=== PATIENT | male | born 1950 | race Caucasian/White ===

== ENCOUNTER 2019-04-27 18:08 | Inpatient (IN) | payer MEDICARE, OTHER, SELFPAY ==
[2019-04-27] VITALS (7 sets, daily range): BP systolic 106–153; BP diastolic 73–84; PULSE 56–74; RESP 13–20; TEMP 36.2; O2SAT 93–98; BMI 29.3; BMI 29.2
--- NOTE | 2019-04-27 18:30 | DI.RAD.S_ITS ---
PROCEDURE: XR CHEST 1V INDICATIONS: chest pain TECHNIQUE: One view of the chest was acquired. COMPARISON: [facility], , CHEST 1 VIEW, 06/22/2016, 7:16. FINDINGS: Surgical changes and devices: None. Lungs and pleura: Lungs are clear. No pleural effusions or pneumothorax. Mediastinum: Mediastinal contours appear normal. Heart size is normal. Bones and chest wall: No suspicious bony lesions. Overlying soft tissues appear unremarkable. IMPRESSION: 1. No acute cardiopulmonary disease. The Dictated by: Rafi Garcia M.D. on 04/27/2019 at 19:29 Approved by: Raif Garcia M.D. on 04/27/2019 at 19:29
[2019-04-27 19:01] LABS: Add Manual Diff / Slide Review NO; Basophils Absolute Auto 0 /uL (0-100); Basophils Percent Auto 0.4 % (0-2); Eosinophils Absolute Auto 400 /uL (0-450); Eosinophils Percent Auto 4.8 % (2-4); Hematocrit 41.9 % (41-53); Hemoglobin 14.5 g/dL (13.5-17.5); Lymphocytes Absolute Auto 2100 /uL (1100-4500); Mean Corpuscular HGB Conc 34.5 % (30-36); Mean Corpuscular Hemoglobin 30.1 PG (26-34); Mean Corpuscular Volume 87.1 fL (80-100); Monocytes Absolute Auto 800 /uL (0-900); Monocytes Percent Auto 9.5 % (3-14); Neutrophils Absolute Auto 5000 /uL (1500-7000); Neutrophils Percent Auto 60.3 % (50-75); Platelet Count 205 X10^3/uL (150-400); Red Blood Cell Count 4.81 X10^6/uL (4.5-5.9); Red Cell Distribution Width 14.6 % (11.6-14.8); White Blood Cell Count 8.3 X10^3/uL (4.5-11.0)
[2019-04-27 19:05] LABS: HEMOLYSIS 28 (0-50)
[2019-04-27 19:06] LABS: Prothrombin Time 11.7 SECONDS (10.1-12.7)
[2019-04-27 19:09] LABS: PTT Partial Thromboplastin Tim 35 SECONDS (26.4-36.2)
[2019-04-27 19:10] LABS: Alanine Aminotransferase 20 IU/L (21-72); Albumin 4.4 g/dL (3.5-5.0); Albumin Globulin Ratio 1.3 (1.0-2.8); Alkaline Phosphatase 51 U/L (38-126); Aspartate Aminotransferase 28 IU/L (17-59); BUN Creatinine Ratio 24.5 (6-22); Bilirubin Total 0.5 mg/dL (0.2-1.3); Blood Urea Nitrogen 27 mg/dL (9-20); Calcium 9.9 mg/dL (8.4-10.2); Carbon Dioxide 28 mmol/L (22-32); Chloride 101 mmol/L (98-107); Creatine Kinase 112 U/L (55-170); Estimated Glomerular Filt Rate > 60.0 mL/min (>60); Globulin 3.4 g/dL (1.7-4.1); Glucose 89 mg/dL (80-110); Lipase 106 U/L (23-300); Potassium 4.1 mmol/L (3.4-5.1); Sodium 137 mmol/L (137-145); Total Protein 7.8 g/dL (6.3-8.2)
--- NOTE | 2019-04-27 19:19 | ED.CHESTPAIN ---
HPI - Chest Pain General Chief Complaint: Chest Pain Stated Complaint: sob/chest tightness today Time Seen by Provider: 04/27/19 19:40 Source: patient Mode of arrival: ambulatory Limitations: no limitations History of Present Illness HPI narrative: Patient is a 68-year-old male who presents with past medical history of CVA today presents with increasing chest discomfort and shortness of breath with exertion is over the last couple of days. He says it started with a hand crank he was cranking up something on the tail end of a truck. He got extremely short of breath and stopped symptoms resolved with rest. Today his symptoms got worse with left exertion. Walking up a small incline which typically does not give him any shortness of breath gave him some shortness of breath today. Sitting at rest he denies any shortness of breath or chest discomfort. 6 weeks ago he returned back from a trip from [place]. He maybe had some left leg cramping a few days ago but no swelling no pain. He has not had any fever chills productive cough heart palpitations nausea or diaphoresis. He has also been on and off Plavix since his stroke in 2014. Doctors take him off and put him back on depending on which 1 he saw. He is currently not taking Plavix but does take 81 mg aspirin daily. MD complaint: chest pain Onset (ago): day(s) (3) Duration: intermittent Onset: during exertion Severity: mild Quality: tightness Pain radiation: none Relieving factors: rest Exacerbating factors: exertion Context: recent travel (6 weeks ago to [place] and recently to [place]) Associated symptoms: dyspnea Treatments prior to arrival chest pain: aspirin (81 mg) Related Data Home Medications Medication Instructions Recorded Confirmed atorvastatin [Lipitor] 40 mg PO HS 04/27/19 04/27/19 Previous Rx's Medication Instructions Recorded aspirin 81 mg PO QDAY #30 tab 06/25/16 clopidogrel [Plavix] 75 mg PO QDAY #30 tab 06/25/16 Allergies Allergy/AdvReac Type Severity Reaction Status Date / Time No Known Drug Allergies Allergy Verified 04/27/19 19:42 Review of Systems Review of Systems GENERAL: Denies chills, fatigue, malaise, fever, sweats, travel HEENT: Denies sinus pain, ear pain, sore throat, difficulty swallowing, neck pain RESPIRATORY: See HPI CARDIOVASCULAR: See HPI GASTROINTESTINAL: Denies nausea, vomiting, abdominal pain, diarrhea, constipation, melena. : Denies dysuria, frequency, incontinence, hematuria, urinary retention, flank pain. MUSCULOSKELETAL: Denies weakness, joint pain, or bony pain SKIN: No rash, no erythema, no pruritus NEUROLOGIC: Denies weakness, dizziness, headache, numbness, change in speech, confusion PSYCHIATRIC: No concerning psychosocial issues. 12 point review of systems is negative except for those stated above and HPI COUNTS INCLUDE 234 BEDS AT THE [facility] Medical History (Updated 04/27/19 @ 23:16 by IRAIDA Sanon) CVA (cerebral vascular accident) (Acute) Central sleep apnea (Acute) Coronary artery disease (Acute) Hyperlipidemia (Acute) Hypertension (Acute) Myocardial infarction (Acute) CARLA (obstructive sleep apnea) (Acute) Social History marital status: household members: spouse Smoking Status: Never smoker alcohol intake: never substance use type: does not use Social History marital status: household members: spouse Smoking Status: Never smoker alcohol intake: never substance use type: does not use Exam Initial Vital Signs Initial Vital Signs: Vital Signs Pulse Rate 74 04/27/19 18:28 Respiratory Rate 16 04/27/19 18:28 Blood Pressure 153/84 H 04/27/19 18:28 Pulse Oximetry 96 04/27/19 18:28 GENERAL: [Well-appearing, well-nourished] and in [no acute] distress. HEENT: Head atraumatic,EOMI, pupils reactive, face symmetric, [moist] mucous membranes [EARS:] [Tympanic membranes visualized, no erythema or bulging, no hemotympanum] [PHARYNX:] [No erythema, no tonsillar exudate, no cervical lymphadenopathy] CARDIOVASCULAR: Regular rate and rhythm without murmurs, rubs or gallops. RESPIRATORY: Breath sounds equal bilaterally, no wheezes rales or rhonchi. ABDOMEN: Soft, nontender. Normoactive bowel sounds all 4 quadrants. No guarding or rebound.s EXTREMITIES: Normal range of motion, no clubbing or edema. Neurovascularly intact. No calf tenderness swelling pain over erythema NEUROLOGICAL: Alert and oriented x4.Normal gait and speech. Cranial nerves II through XII grossly intact. SKIN: Warm, dry, no laceration, no petechiae, no rashes or lesions. Course Orders Ordered: ED Orders 04/27/19 18:30 XR chest 1V Stat EKG-12 Lead Stat 04/27/19 18:50 Complete Blood Count AUTO DIFF Stat Comprehensive Metabolic Panel Stat Lipase Stat Partial Thromboplastin Time Stat Prothrombin Time INR Stat Troponin & CK Cardiac Panel Stat 04/27/19 19:40 CT angio chest PE protocol Stat EKG-12 Lead Stat 04/27/19 20:57 Troponin I Stat 04/27/19 22:11 Education, smoking cessation ONGOING Education, smoking cessation ONGOING 04/27/19 22:14 Consult to Dietitian, Adult Routine 04/27/19 22:15 Consult to Discharge Planning Routine 04/27/19 22:17 EC echo doppler complete Urgent 04/27/19 22:18 NM gunner perf SPECT R&S pharm Urgent 04/27/19 22:33 Consult to Respiratory Therapy Evaluate & Treat CARLA CPAP Asses/Protocol RT PROTOCOL 04/27/19 23:59 Troponin I Urgent 04/28/19 Basic Metabolic Panel Routine Complete Blood Count AUTO DIFF Routine Lipid Panel Routine Aspirin (Aspirin Ec) 81 mg PO DAILY [facility] Last Admin: 04/27/19 22:34 Dose: Not Given Atorvastatin Calcium (Lipitor) 40 mg PO BEDTIME [facility] Last Admin: 04/27/19 23:54 Dose: Not Given Enoxaparin Sodium (Lovenox) 40 mg SUBCUT DAILY [facility] Sodium Chloride (Normal Saline 0.9%) 1,000 mls @ 75 mls/hr IV CONT [facility] Last Admin: 04/27/19 22:59 Dose: 75 mls/hr Morphine Sulfate (Morphine) 2 mg IV Q4HR PRN PRN Reason: Pain, Moderate (4-6) Morphine Sulfate (Morphine) 2 mg IV Q5MIN PRN PRN Reason: Chest Pain Naloxone HCl (Narcan) 0.2 mg IV Q2MIN PRN PRN Reason: Opiate Reversal Naloxone HCl (Narcan) 0.2 mg IV Q2MIN PRN PRN Reason: Opiate Reversal Nitroglycerin (Nitrostat) 0.4 mg SL [id number] PRN PRN Reason: Chest Pain Ondansetron HCl (Zofran) 4 mg IV Q8HR PRN PRN Reason: Nausea And Vomiting Discontinued Medications Aspirin (Aspirin Chew) 243 mg PO NOW ONE Stop: 04/27/19 19:40 Last Admin: 04/27/19 19:42 Dose: 243 mg Vital Signs - 8 hr 04/27/19 18:28 04/27/19 19:00 04/27/19 20:28 Temperature Pulse Rate 74 64 59 L Respiratory Rate 16 13 15 Blood Pressure 153/84 H Blood Pressure [Right Arm] 146/81 H 121/73 Pulse Oximetry 96 98 04/27/19 21:00 04/27/19 21:30 04/27/19 22:28 Temperature Pulse Rate 57 L 61 Respiratory Rate 13 18 Blood Pressure Blood Pressure [Right Arm] 106/75 134/75 Pulse Oximetry 96 93 04/27/19 23:06 Temperature 97.1 F L Pulse Rate 56 L Respiratory Rate 20 Blood Pressure 126/74 Blood Pressure [Right Arm] Pulse Oximetry 96 MDM - Chest Pain Lab Data Attestation: I reviewed the patient's lab results. Result diagrams: 04/27/19 18:50 04/27/19 18:50 Lab Results 04/27/19 04/27/19 04/27/19 Range/Units 18:50 18:50 18:50 WBC 8.3 (4.5-11.0) X10^3/uL RBC 4.81 (4.5-5.9) X10^6/uL Hgb 14.5 (13.5-17.5) g/dL Hct 41.9 (41-53) % MCV 87.1 (80-100) fL MCH 30.1 (26-34) PG MCHC 34.5 (30-36) % RDW 14.6 (11.6-14.8) % Plt Count 205 (150-400) X10^3/uL Neut % (Auto) 60.3 (50-75) % Lymph % (Auto) 25.0 (25-40) % Dickinson % (Auto) 9.5 (3-14) % Eos % (Auto) 4.8 H (2-4) % Baso % (Auto) 0.4 (0-2) % Neut # (Auto) 5000 (2501-0103) /uL Lymph # (Auto) 2100 (0135-1483) /uL Dickinson # (Auto) 800 (0-900) /uL Eos # (Auto) 400 (0-450) /uL Baso # (Auto) 0 (0-100) /uL PT 11.7 (10.1-12.7) SECONDS INR 1.0 (0.9-1.3) APTT 35 (26.4-36.2) SECONDS Sodium 137 (137-145) mmol/L Potassium 4.1 (3.4-5.1) mmol/L Chloride 101 (98-107) mmol/L Carbon Dioxide 28 (22-32) mmol/L BUN 27 H (9-20) mg/dL Creatinine 1.10 (0.66-1.25) mg/dL Estimated GFR > 60.0 (>60) mL/min BUN/Creatinine Ratio 24.5 H (6-22) Glucose 89 (80-110) mg/dL Calcium 9.9 (8.4-10.2) mg/dL Total Bilirubin 0.5 (0.2-1.3) mg/dL AST 28 (17-59) IU/L ALT 20 L (21-72) IU/L Alkaline Phosphatase 51 (38-126) U/L Total Creatine Kinase 112 (55-170) U/L CK-MB (CK-2) 2.11 (<2.37) ng/mL CK-MB (CK-2) Rel Index 1.9 (1.5-5.0) % Troponin I 0.035 H (0.01-0.034) ng/mL Total Protein 7.8 (6.3-8.2) g/dL Albumin 4.4 (3.5-5.0) g/dL Globulin 3.4 (1.7-4.1) g/dL Albumin/Globulin Ratio 1.3 (1.0-2.8) Lipase 106 (23-300) U/L 04/27/19 04/27/19 Range/Units 20:57 23:59 WBC (4.5-11.0) X10^3/uL RBC (4.5-5.9) X10^6/uL Hgb (13.5-17.5) g/dL Hct (41-53) % MCV (80-100) fL MCH (26-34) PG MCHC (30-36) % RDW (11.6-14.8) % Plt Count (150-400) X10^3/uL Neut % (Auto) (50-75) % Lymph % (Auto) (25-40) % Dickinson % (Auto) (3-14) % Eos % (Auto) (2-4) % Baso % (Auto) (0-2) % Neut # (Auto) (0205-4124) /uL Lymph # (Auto) (3821-7239) /uL Dickinson # (Auto) (0-900) /uL Eos # (Auto) (0-450) /uL Baso # (Auto) (0-100) /uL PT (10.1-12.7) SECONDS INR (0.9-1.3) APTT (26.4-36.2) SECONDS Sodium (137-145) mmol/L Potassium (3.4-5.1) mmol/L Chloride (98-107) mmol/L Carbon Dioxide (22-32) mmol/L BUN (9-20) mg/dL Creatinine (0.66-1.25) mg/dL Estimated GFR (>60) mL/min BUN/Creatinine Ratio (6-22) Glucose (80-110) mg/dL Calcium (8.4-10.2) mg/dL Total Bilirubin (0.2-1.3) mg/dL AST (17-59) IU/L ALT (21-72) IU/L Alkaline Phosphatase (38-126) U/L Total Creatine Kinase (55-170) U/L CK-MB (CK-2) (<2.37) ng/mL CK-MB (CK-2) Rel Index (1.5-5.0) % Troponin I 0.060 H 0.059 H (0.01-0.034) ng/mL Total Protein (6.3-8.2) g/dL Albumin (3.5-5.0) g/dL Globulin (1.7-4.1) g/dL Albumin/Globulin Ratio (1.0-2.8) Lipase (23-300) U/L Imaging Data Chest x-ray: Radiologist's impression: PROCEDURE: XR CHEST 1V INDICATIONS: chest pain TECHNIQUE: One view of the chest was acquired. COMPARISON: [facility], , CHEST 1 VIEW, 06/22/2016, 7:16. FINDINGS: Surgical changes and devices: None. Lungs and pleura: Lungs are clear. No pleural effusions or pneumothorax. Mediastinum: Mediastinal contours appear normal. Heart size is normal. Bones and chest wall: No suspicious bony lesions. Overlying soft tissues appear unremarkable. IMPRESSION: 1. No acute cardiopulmonary disease. The Dictated by: Rafi Garcia M.D. on 04/27/2019 at 19:29 CT scan - chest: Radiologist's impression: PROCEDURE: CT ANGIO CHEST PE PROTOCOL INDICATIONS: short of breath TECHNIQUE: After the administration of intravenous contrast, 2 mm thick sections acquired from the pulmonary apices to the posterior costophrenic angles. 3-dimensional maximum intensity projection (MIP) coronal and sagittal reformats were then acquired through the thorax. For radiation dose reduction, the following was used: automated exposure control, adjustment of mA and/or kV according to patient size. COMPARISON: None. FINDINGS: Image quality: Excellent. Pulmonary arteries: Pulmonary arteries are normal in size, and demonstrate no intraluminal filling defects to suggest central pulmonary embolism. Lungs and pleura: There is mild dependent atelectasis. No pleural effusions or pneumothorax. Central and peripheral airways are patent. Mediastinum: Heart size is normal, without pericardial effusion. No mediastinal or hilar adenopathy. There is aneurysmal dilatation of the ascending thoracic aorta which measures up to 4.3 cm. The aortic arch measures up to approximately 3.1 cm at the vertex. The proximal descending thoracic aorta measures up to 3.1 cm. At the level of the diaphragmatic hiatus, the aorta measures up to 2.7 cm. Esophagus is normal in caliber, with a small hiatal hernia. Bones and chest wall: No suspicious bony lesions. Ribs and thoracic spine appear intact throughout. Thyroid gland demonstrates no discrete nodules. No axillary or supraclavicular adenopathy. Abdomen: Visualized upper abdominal solid organs appear normal in the early arterial phase of enhancement. IMPRESSION: 1. No evidence of pulmonary embolism. 2. Aneurysmal dilatation of the thoracic aorta as described. Dictated by: Rafi Garcai M.D. on 04/27/2019 at 20:30 ECG Data Attestation: I personally reviewed and interpreted this ECG as follows: Prior ECG tracings: available for review Interpretation: EKG 1.: Normal sinus rhythm rate 71 p.r. interval [address] elevations no T-wave inversions or ST depressions similar to previous EKG in 2016. EKG 2. Normal sinus rhythm rate 63 unchanged from prior. MDM Narrative Medical decision making narrative: The patient is overall been chest pain free in the ED. He does have a slightly rising troponin but is still negative. His symptoms certainly consistent for cardiac disease. CT for PE was done based on patient's recent travel to [place] and was negative for PE but does have a thoracic aneurysm. Aneurysm shows no sign of dissection or rupture. At this time unlikely to be causing his symptoms is and can be managed in followed as an outpatient. Patient is certainly at risk for coronary artery disease and cardiovascular disease. Hospitalist Charles Ying has accepted patient Discharge Plan Departure Patient Disposition: Admitted as Observation Clinical Impression: Chest pain Qualifiers: Chest pain type: unspecified Qualified Code(s): R07.9 - Chest pain, unspecified Discharge Date/Time: 04/27/19 22:35 Interventions: ED Discharge Assessment Last Done: 04/27/19 22:35 Admit Date/Time: 04/27/19 22:07 Admit Provider: Danial Ying
[2019-04-27 19:23] LABS: Troponin I 0.035 ng/mL (0.01-0.034)
[2019-04-27 19:25] LABS: CKMB % Relative Index 1.9 % (1.5-5.0); Creatine Kinase MB 2.11 ng/mL (<2.37)
--- NOTE | 2019-04-27 19:40 | DI.CT.S_ITS ---
PROCEDURE: CT ANGIO CHEST PE PROTOCOL INDICATIONS: short of breath TECHNIQUE: After the administration of intravenous contrast, 2 mm thick sections acquired from the pulmonary apices to the posterior costophrenic angles. 3-dimensional maximum intensity projection (MIP) coronal and sagittal reformats were then acquired through the thorax. For radiation dose reduction, the following was used: automated exposure control, adjustment of mA and/or kV according to patient size. COMPARISON: None. FINDINGS: Image quality: Excellent. Pulmonary arteries: Pulmonary arteries are normal in size, and demonstrate no intraluminal filling defects to suggest central pulmonary embolism. Lungs and pleura: There is mild dependent atelectasis. No pleural effusions or pneumothorax. Central and peripheral airways are patent. Mediastinum: Heart size is normal, without pericardial effusion. No mediastinal or hilar adenopathy. There is aneurysmal dilatation of the ascending thoracic aorta which measures up to 4.3 cm. The aortic arch measures up to approximately 3.1 cm at the vertex. The proximal descending thoracic aorta measures up to 3.1 cm. At the level of the diaphragmatic hiatus, the aorta measures up to 2.7 cm. Esophagus is normal in caliber, with a small hiatal hernia. Bones and chest wall: No suspicious bony lesions. Ribs and thoracic spine appear intact throughout. Thyroid gland demonstrates no discrete nodules. No axillary or supraclavicular adenopathy. Abdomen: Visualized upper abdominal solid organs appear normal in the early arterial phase of enhancement. IMPRESSION: 1. No evidence of pulmonary embolism. 2. Aneurysmal dilatation of the thoracic aorta as described. Dictated by: Rafi Garcia M.D. on 04/27/2019 at 20:30 Approved by: Rafi Garcia M.D. on 04/27/2019 at 20:45
[2019-04-27] MEDS: ASPIRIN 81 MG TAB 243 MG PO (19:42)
--- NOTE | 2019-04-27 20:12 | ED_ITS ---
HPI - Chest Pain General Chief Complaint: Chest Pain Stated Complaint: sob/chest tightness today Time Seen by Provider: 04/27/19 19:40 Source: patient Mode of arrival: ambulatory Limitations: no limitations History of Present Illness HPI narrative: Patient is a 68-year-old male who presents with past medical history of CVA today presents with increasing chest discomfort and shortness of breath with exertion is over the last couple of days. He says it started with a hand crank he was cranking up something on the tail end of a truck. He got extremely short of breath and stopped symptoms resolved with rest. Today his symptoms got worse with left exertion. Walking up a small incline which typically does not give him any shortness of breath gave him some shortness of breath today. Sitting at rest he denies any shortness of breath or chest discomfort. 6 weeks ago he returned back from a trip from [place]. He maybe had some left leg cramping a few days ago but no swelling no pain. He has not had any fever chills productive cough heart palpitations nausea or diaphoresis. He has also been on and off Plavix since his stroke in 2014. Doctors take him off and put him back on depending on which 1 he saw. He is currently not taking Plavix but does take 81 mg aspirin daily. MD complaint: chest pain Onset (ago): day(s) (3) Duration: intermittent Onset: during exertion Severity: mild Quality: tightness Pain radiation: none Relieving factors: rest Exacerbating factors: exertion Context: recent travel (6 weeks ago to [place] and recently to [place]) Associated symptoms: dyspnea Treatments prior to arrival chest pain: aspirin (81 mg) Related Data Home Medications Medication Instructions Recorded Confirmed atorvastatin [Lipitor] 40 mg PO HS 04/27/19 04/27/19 Previous Rx's Medication Instructions Recorded aspirin 81 mg PO QDAY #30 tab 06/25/16 clopidogrel [Plavix] 75 mg PO QDAY #30 tab 06/25/16 Allergies Allergy/AdvReac Type Severity Reaction Status Date / Time No Known Drug Allergies Allergy Verified 04/27/19 19:42 Review of Systems Review of Systems GENERAL: Denies chills, fatigue, malaise, fever, sweats, travel HEENT: Denies sinus pain, ear pain, sore throat, difficulty swallowing, neck p ain RESPIRATORY: See HPI CARDIOVASCULAR: See HPI GASTROINTESTINAL: Denies nausea, vomiting, abdominal pain, diarrhea, constipation, melena. : Denies dysuria, frequency, incontinence, hematuria, urinary retention, flank pain. MUSCULOSKELETAL: Denies weakness, joint pain, or bony pain SKIN: No rash, no erythema, no pruritus NEUROLOGIC: Denies weakness, dizziness, headache, numbness, change in speech, confusion PSYCHIATRIC: No concerning psychosocial issues. 12 point review of systems is negative except for those stated above and HPI [facility] Medical History (Updated 04/27/19 @ 23:16 by IRAIDA Sanon) CVA (cerebral vascular accident) (Acute) Central sleep apnea (Acute) Coronary artery disease (Acute) Hyperlipidemia (Acute) Hypertension (Acute) Myocardial infarction (Acute) CARLA (obstructive sleep apnea) (Acute) Social History marital status: household members: spouse Smoking Status: Never smoker alcohol intake: never substance use type: does not use Social History marital status: household members: spouse Smoking Status: Never smoker alcohol intake: never substance use type: does not use Exam Initial Vital Signs Initial Vital Signs: Vital Signs Pulse Rate 74 04/27/19 18:28 Respiratory Rate 16 04/27/19 18:28 Blood Pressure 153/84 H 04/27/19 18:28 Pulse Oximetry 96 04/27/19 18:28 GENERAL: [Well-appearing, well-nourished] and in [no acute] distress. HEENT: Head atraumatic,EOMI, pupils reactive, face symmetric, [moist] mucous membranes [EARS:] [Tympanic membranes visualized, no erythema or bulging, no hemotympanum] [PHARYNX:] [No erythema, no tonsillar exudate, no cervical lymphadenopathy] CARDIOVASCULAR: Regular rate and rhythm without murmurs, rubs or gallops. RESPIRATORY: Breath sounds equal bilaterally, no wheezes rales or rhonchi. ABDOMEN: Soft, nontender. Normoactive bowel sounds all 4 quadrants. No guarding or rebound.s EXTREMITIES: Normal range of motion, no clubbing or edema. Neurovascularly intact. No calf tenderness swelling pain over erythema NEUROLOGICAL: Alert and oriented x4.Normal gait and speech. Cranial nerves II through XII grossly intact. SKIN: Warm, dry, no laceration, no petechiae, no rashes or lesions. Course Orders Ordered: ED Orders 04/27/19 18:30 XR chest 1V Stat EKG-12 Lead Stat 04/27/19 18:50 Complete Blood Count AUTO DIFF Stat Comprehensive Metabolic Panel Stat Lipase Stat Partial Thromboplastin Time Stat Prothrombin Time INR Stat Troponin & CK Cardiac Panel Stat 04/27/19 19:40 CT angio chest PE protocol Stat EKG-12 Lead Stat 04/27/19 20:57 Troponin I Stat 04/27/19 22:11 Education, smoking cessation ONGOING Education, smoking cessation ONGOING 04/27/19 22:14 Consult to Dietitian, Adult Routine 04/27/19 22:15 Consult to Discharge Planning Routine 04/27/19 22:17 EC echo doppler complete Urgent 04/27/19 22:18 NM gunner perf SPECT R&S pharm Urgent 04/27/19 22:33 Consult to Respiratory Therapy Evaluate & Treat CARLA CPAP Asses/Protocol RT PROTOCOL 04/27/19 23:59 Troponin I Urgent 04/28/19 Basic Metabolic Panel Routine Complete Blood Count AUTO DIFF Routine Lipid Panel Routine Aspirin (Aspirin Ec) 81 mg PO DAILY [facility] Last Admin: 04/27/19 22:34 Dose: Not Given Atorvastatin Calcium (Lipitor) 40 mg PO BEDTIME [facility] Last Admin: 04/27/19 23:54 Dose: Not Given Enoxaparin Sodium (Lovenox) 40 mg SUBCUT DAILY [facility] Sodium Chloride (Normal Saline 0.9%) 1,000 mls @ 75 mls/hr IV CONT [facility] Last Admin: 04/27/19 22:59 Dose: 75 mls/hr Morphine Sulfate (Morphine) 2 mg IV Q4HR PRN PRN Reason: Pain, Moderate (4-6) Morphine Sulfate (Morphine) 2 mg IV Q5MIN PRN PRN Reason: Chest Pain Naloxone HCl (Narcan) 0.2 mg IV Q2MIN PRN PRN Reason: Opiate Reversal Naloxone HCl (Narcan) 0.2 mg IV Q2MIN PRN PRN Reason: Opiate Reversal Nitroglycerin (Nitrostat) 0.4 mg SL [id number] PRN PRN Reason: Chest Pain Ondansetron HCl (Zofran) 4 mg IV Q8HR PRN PRN Reason: Nausea And Vomiting Discontinued Medications Aspirin (Aspirin Chew) 243 mg PO NOW ONE Stop: 04/27/19 19:40 Last Admin: 04/27/19 19:42 Dose: 243 mg Vital Signs - 8 hr 04/27/19 18:28 04/27/19 19:00 04/27/19 20:28 Temperature Pulse Rate 74 64 59 L Respiratory Rate 16 13 15 Blood Pressure 153/84 H Blood Pressure [Right Arm] 146/81 H 121/73 Pulse Oximetry 96 98 04/27/19 21:00 04/27/19 21:30 04/27/19 22:28 Temperature Pulse Rate 57 L 61 Respiratory Rate 13 18 Blood Pressure Blood Pressure [Right Arm] 106/75 134/75 Pulse Oximetry 96 93 04/27/19 23:06 Temperature 97.1 F L Pulse Rate 56 L Respiratory Rate 20 Blood Pressure 126/74 Blood Pressure [Right Arm] Pulse Oximetry 96 MDM - Chest Pain Lab Data Attestation: I reviewed the patient's lab results. Result diagrams: 04/27/19 18:50 04/27/19 18:50 Lab Results 04/27/19 04/27/19 04/27/19 Range/Units 18:50 18:50 18:50 WBC 8.3 (4.5-11.0) X10^3/uL RBC 4.81 (4.5-5.9) X10^6/uL Hgb 14.5 (13.5-17.5) g/dL Hct 41.9 (41-53) % MCV 87.1 (80-100) fL MCH 30.1 (26-34) PG MCHC 34.5 (30-36) % RDW 14.6 (11.6-14.8) % Plt Count 205 (150-400) X10^3/uL Neut % (Auto) 60.3 (50-75) % Lymph % (Auto) 25.0 (25-40) % [place] % (Auto) 9.5 (3-14) % Eos % (Auto) 4.8 H (2-4) % Baso % (Auto) 0.4 (0-2) % Neut # (Auto) 5000 (8479-7203) /uL Lymph # (Auto) 2100 (2376-5280) /uL [place] # (Auto) 800 (0-900) /uL Eos # (Auto) 400 (0-450) /uL Baso # (Auto) 0 (0-100) /uL PT 11.7 (10.1-12.7) SECONDS INR 1.0 (0.9-1.3) APTT 35 (26.4-36.2) SECONDS Sodium 137 (137-145) mmol/L Potassium 4.1 (3.4-5.1) mmol/L Chloride 101 (98-107) mmol/L Carbon Dioxide 28 (22-32) mmol/L BUN 27 H (9-20) mg/dL Creatinine 1.10 (0.66-1.25) mg/dL Estimated GFR > 60.0 (>60) mL/min BUN/Creatinine Ratio 24.5 H (6-22) Glucose 89 (80-110) mg/dL Calcium 9.9 (8.4-10.2) mg/dL Total Bilirubin 0.5 (0.2-1.3) mg/dL AST 28 (17-59) IU/L ALT 20 L (21-72) IU/L Alkaline Phosphatase 51 (38-126) U/L Total Creatine Kinase 112 (55-170) U/L CK-MB (CK-2) 2.11 (<2.37) ng/mL CK-MB (CK-2) Rel Index 1.9 (1.5-5.0) % Troponin I 0.035 H (0.01-0.034) ng/mL Total Protein 7.8 (6.3-8.2) g/dL Albumin 4.4 (3.5-5.0) g/dL Globulin 3.4 (1.7-4.1) g/dL Albumin/Globulin Ratio 1.3 (1.0-2.8) Lipase 106 (23-300) U/L 04/27/19 04/27/19 Range/Units 20:57 23:59 WBC (4.5-11.0) X10^3/uL RBC (4.5-5.9) X10^6/uL Hgb (13.5-17.5) g/dL Hct (41-53) % MCV (80-100) fL MCH (26-34) PG MCHC (30-36) % RDW (11.6-14.8) % Plt Count (150-400) X10^3/uL Neut % (Auto) (50-75) % Lymph % (Auto) (25-40) % [place] % (Auto) (3-14) % Eos % (Auto) (2-4) % Baso % (Auto) (0-2) % Neut # (Auto) (9205-5846) /uL Lymph # (Auto) (4896-9753) /uL [place] # (Auto) (0-900) /uL Eos # (Auto) (0-450) /uL Baso # (Auto) (0-100) /uL PT (10.1-12.7) SECONDS INR (0.9-1.3) APTT (26.4-36.2) SECONDS Sodium (137-145) mmol/L Potassium (3.4-5.1) mmol/L Chloride (98-107) mmol/L Carbon Dioxide (22-32) mmol/L BUN (9-20) mg/dL Creatinine (0.66-1.25) mg/dL Estimated GFR (>60) mL/min BUN/Creatinine Ratio (6-22) Glucose (80-110) mg/dL Calcium (8.4-10.2) mg/dL Total Bilirubin (0.2-1.3) mg/dL AST (17-59) IU/L ALT (21-72) IU/L Alkaline Phosphatase (38-126) U/L Total Creatine Kinase (55-170) U/L CK-MB (CK-2) (<2.37) ng/mL CK-MB (CK-2) Rel Index (1.5-5.0) % Troponin I 0.060 H 0.059 H (0.01-0.034) ng/mL Total Protein (6.3-8.2) g/dL Albumin (3.5-5.0) g/dL Globulin (1.7-4.1) g/dL Albumin/Globulin Ratio (1.0-2.8) Lipase (23-300) U/L Imaging Data Chest x-ray: Radiologist's impression: PROCEDURE: XR CHEST 1V INDICATIONS: chest pain TECHNIQUE: One view of the chest was acquired. COMPARISON: [facility], , CHEST 1 VIEW, 06/22/2016, 7:16. FINDINGS: Surgical changes and devices: None. Lungs and pleura: Lungs are clear. No pleural effusions or pneumothorax. Mediastinum: Mediastinal contours appear normal. Heart size is normal. Bones and chest wall: No suspicious bony lesions. Overlying soft tissues appea r unremarkable. IMPRESSION: 1. No acute cardiopulmonary disease. The Dictated by: Rafi Garcia M.D. on 04/27/2019 at 19:29 CT scan - chest: Radiologist's impression: PROCEDURE: CT ANGIO CHEST PE PROTOCOL INDICATIONS: short of breath TECHNIQUE: After the administration of intravenous contrast, 2 mm thick sections acquired from the pulmonary apices to the posterior costophrenic angles. 3-dimensional maximum intensity projection (MIP) coronal and sagittal reformats were then acquired through the thorax. For radiation dose reduction, the following was used: automated exposure control, adjustment of mA and/or kV according to patient size. COMPARISON: None. FINDINGS: Image quality: Excellent. Pulmonary arteries: Pulmonary arteries are normal in size, and demonstrate no intraluminal filling defects to suggest central pulmonary embolism. Lungs and pleura: There is mild dependent atelectasis. No pleural effusions or pneumothorax. Central and peripheral airways are patent. Mediastinum: Heart size is normal, without pericardial effusion. No mediastinal or hilar adenopathy. There is aneurysmal dilatation of the ascending thoracic aorta which measures up to 4.3 cm. The aortic arch measures up to approximately 3.1 cm at the vertex. The proximal descending thoracic aorta measures up to 3.1 cm. At the level of the diaphragmatic hiatus, the aorta measures up to 2.7 cm. Esophagus is normal in caliber, with a small hiatal hernia. Bones and chest wall: No suspicious bony lesions. Ribs and thoracic spine appear intact throughout. Thyroid gland demonstrates no discrete nodules. No axillary or supraclavicular adenopathy. Abdomen: Visualized upper abdominal solid organs appear normal in the early arterial phase of enhancement. IMPRESSION: 1. No evidence of pulmonary embolism. 2. Aneurysmal dilatation of the thoracic aorta as described. Dictated by: Rafi Garcia M.D. on 04/27/2019 at 20:30 ECG Data Attestation: I personally reviewed and interpreted this ECG as follows: Prior ECG tracings: available for review Interpretation: EKG 1.: Normal sinus rhythm rate 71 p.r. interval [address] el evations no T-wave inversions or ST depressions similar to previous EKG in 2016. EKG 2. Normal sinus rhythm rate 63 unchanged from prior. MDM Narrative Medical decision making narrative: The patient is overall been chest pain free in the ED. He does have a slightly rising troponin but is still negative. His symptoms certainly consistent for cardiac disease. CT for PE was done based on patient's recent travel to [place] and was negative for PE but does have a thoracic aneurysm. Aneurysm shows no sign of dissection or rupture. At this time unlikely to be causing his symptoms is and can be managed in followed as an outpatient. Patient is certainly at risk for coronary artery disease and cardiovascular disease. Hospitalist Charles Ying has accepted patient Discharge Plan Departure Patient Disposition: Admitted as Observation Clinical Impression: Chest pain Qualifiers: Chest pain type: unspecified Qualified Code(s): R07.9 - Chest pain, unspecified Discharge Date/Time: 04/27/19 22:35 Interventions: ED Discharge Assessment Last Done: 04/27/19 22:35 Admit Date/Time: 04/27/19 22:07 Admit Provider: Danial Ying
--- NOTE | 2019-04-27 22:17 | DI.ECHO.S_ITS ---
[place] [facility]---------+ [facility] +---------+ : : [address] : [address] : : : : [id number] : : : : Phone: [phone] Echocardiogram Report + + :Name: VIVIAN CASIANO Study Date: 04/28/2019 Height: 75 in : :[facility] Exam Location: IS Weight: 235 lb : : Gender: Male BSA: 2.4 m2 : :: 1950 Age: 68 yrs BP: 126/74 mmHg: :Reason For Study: Chest pain : :Ordering Physician: Aniceto : :Hospitalist Performed By: Lacy Page : :Referring: CLEMENT PRECIADO : + + Interpretation Summary The ejection fraction is estimated to be 50-55%. There ia mid to distal posteriolateral wall hypokinesis.Inferoapical hypokimesis. The right ventricle is mildly dilated. There is mild mitral regurgitation. The ascending aorta is moderately enlarged. Procedure: A two-dimensional transthoracic echocardiogram with color flow and Doppler was performed. The study quality was technically adequate. Comparison is made with the echocardiogram of 06/23/2016. The patient was in sinus bradycardia with heart rates between 45-53 bpm during the exam. Left Ventricle: The left ventricle is mildly dilated. There is normal left ventricular wall thickness. The ejection fraction is estimated to be 50-55%. There ia mid to distal posteriolateral wall hypokinesis.Inferoapical hypokimesis. Right Ventricle: The right ventricle is mildly dilated. The right ventricular systolic function is normal. Atria: The left atrium is severely dilated. Right atrial size is normal. There is no Doppler evidence for an interatrial shunt. Mitral Valve: The mitral valve leaflets are mildly calcified. There is mild mitral annular calcification. There is a calcified nodule noted on the anterior leaflet that was present on the previous study. There is mild mitral regurgitation. Aortic Valve: The aortic valve is trileaflet. The aortic valve opens well. The aortic valve is mildly calcified. There is mild aortic regurgitation. Tricuspid Valve: The tricuspid valve is normal in structure and function. There is trace tricuspid regurgitation. Pulmonary artery pressures cannot be estimated because of the lack of a measurable TR jet velocity. Pulmonic Valve: The pulmonic valve is not well visualized. There is trace pulmonic regurgitation. Great Vessels: The aortic root is mildly dilated. The ascending aorta is moderately enlarged. The pulmonary artery is not well visualized, but is probably normal size. The inferior vena cava was not well visualized. Pericardium/ Pleura There is no pericardial effusion. MMode/2D Measurements & Calculations LVIDd: 6.1 cm LVOT diam: 2.7 cm LVIDs: 4.9 cm Ao root diam: 4.0 cm FS: 19.4 % asc Aorta Diam: 4.4 cm EPSS: 0.51 cm IVSd: 0.77 cm LVPWd: 0.75 cm LV caba. diameter/BSA (cm/m^2): 2.6 LV sys. diameter/BSA (cm/m^2): 2.1 LA A2 area: 30.7 cm2 RA long axis: 5.0 cm LA A4 area: 26.8 cm2 RA area: 20.5 cm2 LA length (vol): 5.7 cm RA vol: 70.9 ml LA vol: 122.8 ml RA : 30.2 ml/m2 LA vol index: 52.3 ml/m2 IVC diam: 1.7 cm RVD1 (basal): 4.7 cm TAPSE: 2.6 cm Doppler Measurements & Calculations Ao V2 max: 184.3 cm/sec LVOT Max Jameel: 105.2 cm/sec Ao V2 mean: 126.6 cm/sec LV V1 max P.4 mmHg Ao max P.6 mmHg LV V1 VTI: 24.4 cm Ao mean P.3 mmHg FORTINO(I,D): 3.1 cm2 Ao V2 VTI: 44.9 cm FORTINO(V,D): 3.3 cm2 sev ratio: 0.54 FORTINO indexed to BSA (cm^2/m^2): 1.3 AI P1/2t: 677.4 msec AI dec slope: 164.3 cm/sec2 MV E max jameel: 71.1 cm/sec PA V2 max: 60.1 cm/sec MV A max jameel: 66.3 cm/sec PA V2 mean: 45.1 cm/sec MV E/A: 1.1 PA mean P.89 mmHg Med Peak E' Jameel: 6.2 cm/sec PA Accel Time: 0.13 sec E/E' med: 11.5 Lat Peak E' Jameel: 7.7 cm/sec E/E' lat: 9.2 E/e' average: 10.3 MV P1/2t: 69.8 msec MV P1/2t max jameel: 70.0 cm/sec SV(LVOT): 140.1 [facility](P1/2t): 3.2 cm2 Reading Physician:10:58 AM
--- NOTE | 2019-04-27 22:18 | DI.NM.S_ITS ---
PROCEDURE: NM PRAKASH PERF SPECT SINGLE STUDY Rest and exercise myocardial perfusion SPECT with gated imaging and ejection fraction RADIOPHARMACEUTICAL: 21.5 mCi Tc-99m sestamibi IV at peak exercise. A one day-protocol was performed. INDICATIONS: Chest pain TECHNIQUE: Radiopharmaceutical was injected at peak stress test, and also at rest. SPECT images were obtained. SPECT myocardial perfusion images were displayed in short axis, horizontal long axis, and vertical long axis views. Gated images were reviewed using Optimizely software. COMPARISON: None. CARDIAC STRESS: A standard Alfredo treadmill exercise tolerance test was performed by the patient under the supervision of an attending staff. The patient exercised for 5 minutes and 17 seconds reaching 7.0 METs; functional aerobic impairment (CAROLA) is +30%. Hemodynamic data: There is normal blood pressure and heart rate response to exercise stress. Patient achieved 97% of maximum predicted heart rate at peak exercise. Symptoms: Patient had chest pain during exercise that resolved during recovery. EKG: No diagnostic EKG changes of ischemia; no ectopy. FINDINGS: Raw data: There is good myocardial labeling by radiotracer. No significant motion artifacts. Wzcb-ih-qxijm ratio is 0.36 (normal is less than 0.38 for sestamibi tracer, and less than 0.50 for thallium tracer). Left ventricle function: Gated images demonstrate normal left ventricle wall thickening. No obvious segmental wall motion abnormality. Left ventricle stress ejection fraction is 51%; normal values are above 45%. Myocardial perfusion: There are moderately intense defects in the distal anterior wall, the apical cap, and the inferior wall with stress and stress prone images. No rest images obtained. IMPRESSION: Abnormal nuclear stress test. 1) Abnormal perfusion images consistent with ischemic heart disease. It is unclear whether these are due to ischemia or infarction. There are moderately intense defects in the distal anterior wall, the apical cap, and the inferior wall with stress and stress prone images. SSS 19. 2) Normal left ventricular size and systolic function (post stress EF 51%). 3) No ECG evidence of ischemia. 4) Angina occurred with exercise that resolved with rest. 5) Reduced exercise tolerance (7.0 METs, CAROLA +30%). Target heart rate achieved. 6) No prior nuclear images available for comparison. Given that the patient has mild trop elevation along with angina and perfusion defects, I spoke with Dr. Logan and the decision was made to transfer the patient to [facility] for coronary angiography. Dictated by: Jovi Orr MD on 04/28/2019 at 16:00 Approved by: Jovi Orr MD on 04/28/2019 at 16:17
[2019-04-27] MEDS: SODIUM CHLORIDE 0.9% 1,000 ML 75 ML IV (22:59)
--- NOTE | 2019-04-27 22:59 | PM.HP.1 ---
History of Present Illness Date Patient Seen: 04/27/19 Time Patient Seen: 22:59 Chief complaint: sob/chest tightness today Narrative: Mr. Edmond Barnes is a 68-year-old male with a past history of coronary artery disease with an NE in 2011, CVA in June 2016 with mild residual confusion, hypertension, hyperlipidemia and central sleep apnea who presents to the ER today with complaints of shortness of breath and mild chest pressure. Patient describes having episodic shortness of breath occurring with activity. The 1st occurrence was while cranking the hitch on a trailer when he developed shortness of breath and mild substernal chest pressure and thinks he may have had some left arm pain as well. He rested and his symptoms resolved. The activity again reoccurred with mild activity each time relieved with rest. Most recently he describes walking up a slight hill and developing shortness of breath and having to return home. He denies complaints of nausea or diaphoresis or palpitations with each episode. The patient has been on chronic aspirin since his stroke and has been on and off Plavix related to varying provider guidance. The patient does report dizziness 1 week ago when he could not walk due to double vision that spontaneously resolved and was consistent with symptoms he experienced with his stroke. He reports only having mild episodes confusion or memory as residual with no weakness balance problems ataxia or falls. He denies any other recent illness with no fevers or chills, nasal congestion or sore throat. He is currently chest pain-free and denies shortness of breath at rest. He does endorse history of central sleep apnea for which she uses CPAP and denies cough or wheezing. The patient denies bdominal pain or diarrhea and has had constipation the past but no current problems. Will have intermittent left leg numbness which he attributes to how he sleeps. Upon arrival in the ER the patient was afebrile with a temperature 98.2?, heart rate 74, blood pressure 153/84, respirations 16 saturating 96% on room air. EKG obtained in the ER and reported as sinus rhythm without ectopy or signs of ischemia or infarct. Patient also underwent a CTA related to recent travel from [place] which was negative. The CT did find an aneurysmal dilation of the ascending thoracic aorta measures 4.3 cm. Chest x-ray was taken which finds no acute cardiopulmonary pathology. On laboratory analysis the patient has white count of 8.3 with a hemoglobin of 14.5 and hematocrit of 41.9 with platelets 205. His electrolytes are within normal range and has a BUN of 27 and creatinine 1.1. The patient's initial troponin was elevated at 0.035 and was recheck approximately 4 hours later and found to be 0.060. The patient has remained pain-free and denies shortness of breath. He is admitted to the hospital for chest pain and type 2 NE. Patient History Medical History (Updated 04/27/19 @ 23:16 by IRAIDA Sanon) CVA (cerebral vascular accident) (Acute) Central sleep apnea (Acute) Coronary artery disease (Acute) Hyperlipidemia (Acute) Hypertension (Acute) Myocardial infarction (Acute) CARLA (obstructive sleep apnea) (Acute) Social History marital status: household members: spouse alcohol intake: never substance use type: does not use Family & Social History Social History: household members spouse Safety & Behavioral: Feels Safe in Current Yes Environment Been Physically Hurt or No Threatened By a Person Tobacco & Substance use: alcohol intake never Comment: The patient lives in a single family home on [address] [place] with his to whom he has been for 50 years. His father at the age 71 from heart disease and his mother at the age 91 from congestive heart failure. He has a brother that has had valvular heart surgery. Smoking: The patient denies ever smoking. Alcohol: Patient endorses rare alcohol intake, a couple times per year. Substance use: Patient denies recreation pharmaceuticals or cannabis products. Advanced directives: In direct discussion with the patient he wishes to have no CPR or intubation and wishes to be DO NOT RESUSCITATE. He designates his to be his surrogate decision maker. [facility] Home Medications Medication Instructions Recorded Confirmed Type aspirin 81 mg PO QDAY #30 tab 06/25/16 04/27/19 Rx clopidogrel [Plavix] 75 mg PO QDAY #30 tab 06/25/16 Rx atorvastatin [Lipitor] 40 mg PO HS 04/27/19 04/27/19 History Allergies Allergy/AdvReac Type Severity Reaction Status Date / Time No Known Drug Allergies Allergy Verified 04/27/19 19:42 Review of Systems Review of Systems All systems reviewed & are unremarkable except as noted in HPI and below Exam Vital Signs (past 8 hours): - 04/27/19 18:28 04/27/19 19:00 04/27/19 20:28 Pulse Rate 74 64 59 L Respiratory Rate 16 13 15 Blood Pressure 153/84 H Blood Pressure [Right Arm] 146/81 H 121/73 Pulse Oximetry 96 98 04/27/19 21:00 04/27/19 21:30 04/27/19 22:28 Pulse Rate 57 L 61 Respiratory Rate 13 18 Blood Pressure Blood Pressure [Right Arm] 106/75 134/75 Pulse Oximetry 96 93 Oxygen Delivery Method Room Air Oxygen Flow Rate 98.2 Narrative Exam Narrative: GENERAL APPEARANCE: well developed, well nourished, in no acute distress. HEAD: Normocephalic, atraumatic, no scalp lesions. EYES: pupils equal, round, reactive to light and accommodation, sclera non-icteric, EOMs without nystagmus with induced diplopia. EARS: normal external structures, no ear pain NOSE: sinuses non tender to percussion, no rhinorrhea ORAL CAVITY: mucosa moist without lesions or exudate, palate normal, tongue in midline. THROAT: normal, no erythema, no exudate, pharynx normal, uvula midline. NECK/THYROID: neck supple, no jugular venous distention, no carotid bruit, no thyromegaly, trachea midline. LYMPH NODES: no cervical or supraclavicular lymphadenopathy. SKIN: warm and dry, no suspicious lesions, no rashes, good turgor. HEART: Bradycardic rate, regular rhythm, S1-S2, physiological split S2, no murmur, no rubs or gallops, brisk capillary refill, no edema LUNGS: clear to auscultation bilaterally, no coarseness crackles or wheezing, no cough present CHEST: Symmetrical movement, no accessory muscle use, no pain to AP and lateral compression. ABDOMEN: Soft, no distention, no epigastric or abdominal tenderness on palpation, no guarding or peritoneal signs, no organomegaly, no flank tenderness, active bowel tones. BACK: Normal curvature, nontender to palpation EXTREMITIES: moves all extremities, strength is 5/5 and symmetrical, well perfused. NEUROLOGIC: AAO x4, insurance application investigator are strong and equal bilateral, lower extremity strength is 5/5, mild weakness right lower extremity, sensory exam intact to light touch, hearing grossly normal to speech. PSYCH: alert, cognitive function intact, good eye contact, stable mood with congruent affect Objective Labs Result Diagrams: 04/27/19 18:50 04/27/19 18:50 Labs: Laboratory Results - last 24 hr 04/27/19 04/27/19 04/27/19 18:50 18:50 18:50 WBC 8.3 RBC 4.81 Hgb 14.5 Hct 41.9 MCV 87.1 MCH 30.1 MCHC 34.5 RDW 14.6 Plt Count 205 Neut % (Auto) 60.3 Lymph % (Auto) 25.0 [place] % (Auto) 9.5 Eos % (Auto) 4.8 H Baso % (Auto) 0.4 Neut # (Auto) 5000 Lymph # (Auto) 2100 [place] # (Auto) 800 Eos # (Auto) 400 Baso # (Auto) 0 PT 11.7 INR 1.0 APTT 35 Sodium 137 Potassium 4.1 Chloride 101 Carbon Dioxide 28 BUN 27 H Creatinine 1.10 Estimated GFR > 60.0 BUN/Creatinine Ratio 24.5 H Glucose 89 Calcium 9.9 Total Bilirubin 0.5 AST 28 ALT 20 L Alkaline Phosphatase 51 Total Creatine Kinase 112 CK-MB (CK-2) 2.11 CK-MB (CK-2) Rel Index 1.9 Troponin I 0.035 H Total Protein 7.8 Albumin 4.4 Globulin 3.4 Albumin/Globulin Ratio 1.3 Lipase 106 04/27/19 20:57 WBC RBC Hgb Hct MCV MCH MCHC RDW Plt Count Neut % (Auto) Lymph % (Auto) [place] % (Auto) Eos % (Auto) Baso % (Auto) Neut # (Auto) Lymph # (Auto) [place] # (Auto) Eos # (Auto) Baso # (Auto) PT INR APTT Sodium Potassium Chloride Carbon Dioxide BUN Creatinine Estimated GFR BUN/Creatinine Ratio Glucose Calcium Total Bilirubin AST ALT Alkaline Phosphatase Total Creatine Kinase CK-MB (CK-2) CK-MB (CK-2) Rel Index Troponin I 0.060 H Total Protein Albumin Globulin Albumin/Globulin Ratio Lipase Assessment & Plan Assessment & Plan narrative: The patient is admitted to the hospital with 3 days of intermittent shortness of breath, chest pain and radiation left arm. 1. Acute NE type 2, present on admission -patient with 3 days of exertional discomfort predominantly shortness of breath associated with mild chest pressure and an episode of left arm pain. -elevated troponin levels in the ER were 0.035 and 4 hours later 0.60. -prior NE in 2011, echocardiogram obtained 06/23/2016 finds mild LV dilation, EF 55-60%, mid anterolateral moderate hypokinesis and proximal posterior lateral wall hypokinesis, mild to moderately enlarged aorta. -obtain echocardiogram -nuclear med stress test, patient will be NPO after midnight. -recheck troponin at midnight and in the morning. -continue home medication aspirin 81 mg daily -Nitroglycerin 0.4 mg sublingual every 5 minutes x3 for chest pain. -Morphine 2 mg every 4 hours as needed for pain 2. chronic hypertension, active -patient with elevated blood pressure 153/84 upon arrival in the ER. Patient reports typical blood pressure at home of 135 over 80s. -he is no longer taking any antihypertensive medications. 3. Hyperlipidemia, presumed stable. -will continue patient's home medication of atorvastatin 40 mg at bedtime. - will check lipid panel. 4. central sleep apnea on CPAP, active -patient uses CPAP at home. -respiratory therapy to consult and evaluate -CPAP per respiratory therapy protocol. 5. cerebrovascular accident, stable. -patient reports prior right hemiparesis with recurrent manifestations left facial numbness and diplopia currently monitored by primary care without new diagnosis of stroke. -patient takes aspirin 81 mg daily. 6. Aneurysm dilation of aorta, presumed stable. -mild to moderate dilation of aorta identified noted echocardiogram in 2015. -CTA obtained in the ER finds aneurysm make dilation of the ascending thoracic aorta of up to 4.3 cm, aortic arch measures up to approximately 3.1 cm at the vertex, proximal descending thoracic aorta measures up to 3.1 cm, at the level of the diaphragm measures up to 2.7 cm. -this is not appear to be contributory to his current complaints of pain and shortness of breath. -follow-up without patient surveillance. The patient is admitted to the hospital due to the severity of the patient's symptoms, risk for complications or adverse events. The patient is admitted as observation with expected length of stay to be less than 2 midnights. Time Spent With Patient Time with patient: 25 - 35 minutes Scores GCS [place] coma scale eye opening: Spontaneous [place] coma scale verbal response: Orientated [place] coma scale motor response: Obey commands [place] coma scale total score: 15
--- NOTE | 2019-04-27 23:12 | P.HP_ITS ---
History of Present Illness Date Patient Seen: 04/27/19 Time Patient Seen: 22:59 Chief complaint: sob/chest tightness today Narrative: Mr. 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 Patient describes having episodic shortness of breath occurring with activity. The 1st occurrence was while cranking the hitch on a trailer when he developed shortness of breath and mild substernal chest pressure and thinks he may have had some left arm pain as well. He rested and his symptoms resolved. The activity again reoccurred with mild activity each time relieved with rest. Most recently he describes walking up a slight hill and developing shortness of breath and having to return home. He denies complaints of nausea or diaphoresis or palpitations with each episode. The patient has been on chronic aspirin since his stroke and has been on and off Plavix related to varying provider guidance. The patient does report dizziness 1 week ago when he could not walk due to double vision that spontaneously resolved and was consistent with symptoms he experienced with his stroke. He reports only having mild episodes confusion or memory as residual with no weakness balance problems ataxia or falls. He denies any other recent illness with no fevers or chills, nasal congestion or sore throat. He is currently chest pain-free and denies shortness of breath at rest. He does endorse history of central sleep apnea for which she uses CPAP and denies cough or wheezing. The patient denies bdominal pain or diarrhea and has had constipation the past but no current problems. Will have intermittent left leg numbness which he attributes to how he sleeps. Upon arrival in the ER the patient was afebrile with a temperature 98.2?, heart rate 74, blood pressure 153/84, respirations 16 saturating 96% on room air. EKG obtained in the ER and reported as sinus rhythm without ectopy or signs of ischemia or infarct. Patient also underwent a CTA related to recent travel from [place] which was negative. The CT did find an aneurysmal dilation of the ascending thoracic aorta measures 4.3 cm. Chest x-ray was taken which finds no acute cardiopulmonary pathology. On laboratory analysis the patient has white count of 8.3 with a hemoglobin of 14.5 and hematocrit of 41.9 with platelets 205. His electrolytes are within normal range and has a BUN of 27 and creatinine 1.1. The patient's initial troponin was elevated at 0.035 and was recheck approximately 4 hours later and found to be 0.060. The patient has remained pain-free and denies shortness of breath. He is admitted to the hospital for chest pain and type 2 PA. Patient History Medical History (Updated 04/27/19 @ 23:16 by IRAIDA Sanon) CVA (cerebral vascular accident) (Acute) Central sleep apnea (Acute) Coronary artery disease (Acute) Hyperlipidemia (Acute) Hypertension (Acute) Myocardial infarction (Acute) CARLA (obstructive sleep apnea) (Acute) Social History marital status: household members: spouse alcohol intake: never substance use type: does not use Family & Social History Social History: household members spouse Safety & Behavioral: Feels Safe in Current Yes Environment Been Physically Hurt or No Threatened By a Person Tobacco & Substance use: alcohol intake never Comment: The patient lives in a single family home on [address] with his to whom he has been for 50 years. His father at the age 71 from heart disease and his mother at the age 91 from congestive heart failure. He has a brother that has had valvular heart surgery. Smoking: The patient denies ever smoking. Alcohol: Patient endorses rare alcohol intake, a couple times per year. Substance use: Patient denies recreation pharmaceuticals or cannabis products. Advanced directives: In direct discussion with the patient he wishes to have no CPR or intubation and wishes to be DO NOT RESUSCITATE. He designates his to be his surrogate decision maker. [facility] Home Medications Medication Instructions Recorded Confirmed Type aspirin 81 mg PO QDAY #30 tab 06/25/16 04/27/19 Rx clopidogrel [Plavix] 75 mg PO QDAY #30 tab 06/25/16 Rx atorvastatin [Lipitor] 40 mg PO HS 04/27/19 04/27/19 History Allergies Allergy/AdvReac Type Severity Reaction Status Date / Time No Known Drug Allergies Allergy Verified 04/27/19 19:42 Review of Systems Review of Systems All systems reviewed & are unremarkable except as noted in HPI and below Exam Vital Signs (past 8 hours): - 04/27/19 18:28 04/27/19 19:00 04/27/19 20:28 Pulse Rate 74 64 59 L Respiratory Rate 16 13 15 Blood Pressure 153/84 H Blood Pressure [Right Arm] 146/81 H 121/73 Pulse Oximetry 96 98 04/27/19 21:00 04/27/19 21:30 04/27/19 22:28 Pulse Rate 57 L 61 Respiratory Rate 13 18 Blood Pressure Blood Pressure [Right Arm] 106/75 134/75 Pulse Oximetry 96 93 Oxygen Delivery Method Room Air Oxygen Flow Rate 98.2 Narrative Exam Narrative: GENERAL APPEARANCE: well developed, well nourished, in no acute distress. HEAD: Normocephalic, atraumatic, no scalp lesions. EYES: pupils equal, round, reactive to light and accommodation, sclera non- icteric, EOMs without nystagmus with induced diplopia. EARS: normal external structures, no ear pain NOSE: sinuses non tender to percussion, no rhinorrhea ORAL CAVITY: mucosa moist without lesions or exudate, palate normal, tongue in midline. THROAT: normal, no erythema, no exudate, pharynx normal, uvula midline. NECK/THYROID: neck supple, no jugular venous distention, no carotid bruit, no thyromegaly, trachea midline. LYMPH NODES: no cervical or supraclavicular lymphadenopathy. SKIN: warm and dry, no suspicious lesions, no rashes, good turgor. HEART: Bradycardic rate, regular rhythm, S1-S2, physiological split S2, no murmur, no rubs or gallops, brisk capillary refill, no edema LUNGS: clear to auscultation bilaterally, no coarseness crackles or wheezing, no cough present CHEST: Symmetrical movement, no accessory muscle use, no pain to AP and lateral compression. ABDOMEN: Soft, no distention, no epigastric or abdominal tenderness on palpation, no guarding or peritoneal signs, no organomegaly, no flank tenderness, active bowel tones. BACK: Normal curvature, nontender to palpation EXTREMITIES: moves all extremities, strength is 5/5 and symmetrical, well perfused. NEUROLOGIC: AAO x4, oxygen equipment preparer are strong and equal bilateral, lower extremity strength is 5/5, mild weakness right lower extremity, sensory exam intact to light touch, hearing grossly normal to speech. PSYCH: alert, cognitive function intact, good eye contact, stable mood with congruent affect Objective Labs Result Diagrams: 04/27/19 18:50 04/27/19 18:50 Labs: Laboratory Results - last 24 hr 04/27/19 04/27/19 04/27/19 18:50 18:50 18:50 WBC 8.3 RBC 4.81 Hgb 14.5 Hct 41.9 MCV 87.1 MCH 30.1 MCHC 34.5 RDW 14.6 Plt Count 205 Neut % (Auto) 60.3 Lymph % (Auto) 25.0 [place] % (Auto) 9.5 Eos % (Auto) 4.8 H Baso % (Auto) 0.4 Neut # (Auto) 5000 Lymph # (Auto) 2100 [place] # (Auto) 800 Eos # (Auto) 400 Baso # (Auto) 0 PT 11.7 INR 1.0 APTT 35 Sodium 137 Potassium 4.1 Chloride 101 Carbon Dioxide 28 BUN 27 H Creatinine 1.10 Estimated GFR > 60.0 BUN/Creatinine Ratio 24.5 H Glucose 89 Calcium 9.9 Total Bilirubin 0.5 AST 28 ALT 20 L Alkaline Phosphatase 51 Total Creatine Kinase 112 CK-MB (CK-2) 2.11 CK-MB (CK-2) Rel Index 1.9 Troponin I 0.035 H Total Protein 7.8 Albumin 4.4 Globulin 3.4 Albumin/Globulin Ratio 1.3 Lipase 106 04/27/19 20:57 WBC RBC Hgb Hct MCV MCH MCHC RDW Plt Count Neut % (Auto) Lymph % (Auto) [place] % (Auto) Eos % (Auto) Baso % (Auto) Neut # (Auto) Lymph # (Auto) [place] # (Auto) Eos # (Auto) Baso # (Auto) PT INR APTT Sodium Potassium Chloride Carbon Dioxide BUN Creatinine Estimated GFR BUN/Creatinine Ratio Glucose Calcium Total Bilirubin AST ALT Alkaline Phosphatase Total Creatine Kinase CK-MB (CK-2) CK-MB (CK-2) Rel Index Troponin I 0.060 H Total Protein Albumin Globulin Albumin/Globulin Ratio Lipase Assessment & Plan Assessment & Plan narrative: The patient is admitted to the hospital with 3 days of intermittent shortness of breath, chest pain and radiation left arm. 1. Acute PA type 2, present on admission -patient with 3 days of exertional discomfort predominantly shortness of breath associated with mild chest pressure and an episode of left arm pain. -elevated troponin levels in the ER were 0.035 and 4 hours later 0.60. -prior PA in 2011, echocardiogram obtained 06/23/2016 finds mild LV dilation, EF 55-60%, mid anterolateral moderate hypokinesis and proximal posterior lateral wall hypokinesis, mild to moderately enlarged aorta. -obtain echocardiogram -nuclear med stress test, patient will be NPO after midnight. -recheck troponin at midnight and in the morning. -continue home medication aspirin 81 mg daily -Nitroglycerin 0.4 mg sublingual every 5 minutes x3 for chest pain. -Morphine 2 mg every 4 hours as needed for pain 2. chronic hypertension, active -patient with elevated blood pressure 153/84 upon arrival in the ER. Patient reports typical blood pressure at home of 135 over 80s. -he is no longer taking any antihypertensive medications. 3. Hyperlipidemia, presumed stable. -will continue patient's home medication of atorvastatin 40 mg at bedtime. - will check lipid panel. 4. central sleep apnea on CPAP, active -patient uses CPAP at home. -respiratory therapy to consult and evaluate -CPAP per respiratory therapy protocol. 5. cerebrovascular accident, stable. -patient reports prior right hemiparesis with recurrent manifestations left facial numbness and diplopia currently monitored by primary care without new diagnosis of stroke. -patient takes aspirin 81 mg daily. 6. Aneurysm dilation of aorta, presumed stable. -mild to moderate dilation of aorta identified noted echocardiogram in 2015. -CTA obtained in the ER finds aneurysm make dilation of the ascending thoracic aorta of up to 4.3 cm, aortic arch measures up to approximately 3.1 cm at the vertex, proximal descending thoracic aorta measures up to 3.1 cm, at the level of the diaphragm measures up to 2.7 cm. -this is not appear to be contributory to his current complaints of pain and shortness of breath. -follow-up without patient surveillance. The patient is admitted to the hospital due to the severity of the patient's symptoms, risk for complications or adverse events. The patient is admitted as observation with expected length of stay to be less than 2 midnights. Time Spent With Patient Time with patient: 25 - 35 minutes Scores GCS [place] coma scale eye opening: Spontaneous [place] coma scale verbal response: Orientated [place] coma scale motor response: Obey commands [place] coma scale total score: 15
[2019-04-28 00:29] LABS: Troponin I 0.059 ng/mL (0.01-0.034)
--- NOTE | 2019-04-28 00:42 | PC.NURSE ---
2300- Pt admit for chest pain while walking & at rest; denies chest pain at this time. Trending trops (which have been positive); NS running as ordered; SED's in place bilaterally. present @ bedside for the entire night. Moving SBA to bathroom; tele reading SB which is baseline for pt. 2329- Admission assessment complete. Pt declined statin medication stating he doesn't want to take it this late.
[2019-04-28 05:16] VITALS: BP 126/79; PULSE 54; RESP 18; TEMP 36.2; O2SAT 96
[2019-04-28 05:59] LABS: Add Manual Diff / Slide Review NO; Basophils Absolute Auto 0 /uL (0-100); Basophils Percent Auto 0.3 % (0-2); Eosinophils Absolute Auto 400 /uL (0-450); Eosinophils Percent Auto 6.1 % (2-4); Hematocrit 40.1 % (41-53); Hemoglobin 13.8 g/dL (13.5-17.5); Lymphocytes Absolute Auto 1700 /uL (1100-4500); Lymphocytes Percent Auto 29.1 % (25-40); Mean Corpuscular HGB Conc 34.4 % (30-36); Mean Corpuscular Volume 87.3 fL (80-100); Monocytes Absolute Auto 600 /uL (0-900); Monocytes Percent Auto 10.6 % (3-14); Neutrophils Absolute Auto 3200 /uL (1500-7000); Neutrophils Percent Auto 53.9 % (50-75); Platelet Count 178 X10^3/uL (150-400); Red Cell Distribution Width 14.6 % (11.6-14.8); White Blood Cell Count 5.9 X10^3/uL (4.5-11.0)
[2019-04-28 06:11] LABS: Blood Urea Nitrogen 22 mg/dL (9-20); Calcium 9.4 mg/dL (8.4-10.2); Carbon Dioxide 29 mmol/L (22-32); Chloride 103 mmol/L (98-107); Cholesterol 168 mg/dL (140-199); Estimated Glomerular Filt Rate > 60.0 mL/min (>60); Glucose 88 mg/dL (80-110); HDL Cholesterol 38 mg/dL (40-60); HEMOLYSIS 18 (0-50); LDL Cholesterol Calculated 108 mg/dL (<100); Potassium 3.9 mmol/L (3.4-5.1); Sodium 137 mmol/L (137-145); Triglycerides 111 mg/dL (35-150)
[2019-04-28 06:23] LABS: Troponin I 0.072 ng/mL (0.01-0.034)
[2019-04-28 07:25] VITALS: BP 129/71; PULSE 52; RESP 18; TEMP 36.6; O2SAT 96
[2019-04-28] MEDS: ASPIRIN EC 81 MG TABLET PO (09:17)
[2019-04-28] MEDS: ENOXAPARIN 40 MG/0.4 ML SYRINGE SUBCUT (09:17)
--- NOTE | 2019-04-28 10:06 | PC.NURSE ---
Addendum entered by Sandra Carlson R.N. 04/28/19 12:02: MD informed regarding bradycardia, and nuclear medicine, NEL Hannon informed Addendum entered by Sandra Carlson R.N. 04/28/19 11:50: @ 1145 ICU called to report bradycardia in the 40's for short run; pt denies SOB, dizziness; @ 1150 pt transferred to nuclear [facility] via wheelchair for stress test Original Note: Pt denies SOB, chest pain, nausea; skin warm and dry;cap refil <2; no edema present; pulse normal and regular; S1 and S2 Heart sounds; Telemetry Sinus Bradycardia; O2 RA=98%; LS clear; c/m/s X 4 extremities present; MD notified regarding Troponin elevation; Echo complete and Stress Test pending 11:30 am. in room and patient ambulating independently;
[2019-04-28 11:00] VITALS: BP 132/73; PULSE 45; RESP 18; TEMP 36.3; O2SAT 97
--- NOTE | 2019-04-28 12:12 | PM.TREADMILL ---
Cardiac Stress Test Report Referral & Results Date Patient Seen: 04/28/19 Time Patient Seen: 11:45 Requesting provider: Arabella Sauceda Indication: Chest pain Rest ECG: NSR Procedure Note: Today following both written and verbal informed consent the patient was exercised according to a standard Alfredo protocol patient went for a total of 5 minutes 17 seconds achieving a maximum heart rate of 147 maximum systolic blood pressure of 152. This is approximately 7.0 METS. Exercise was terminated at this point because of targets met, and patient had mild angina. Patient remained in normal sinus rhythm throughout with occasional PVCs. CAROLA 20% on sedentary scale. Patient was also given Cardiolite through a previously started Hep-Lock IV by the copy technician approximately 1 minute prior to the cessation of exercise. Impression: Calderon treadmill score of 1 suggests intermediate probability for ischemia. Will await perfusion imaging. Please note: Actual ECG tracings can be found in the PACS system.
--- NOTE | 2019-04-28 12:16 | P.PCN_ITS ---
Cardiac Stress Test Report Referral & Results Date Patient Seen: 04/28/19 Time Patient Seen: 11:45 Requesting provider: Arabella Sauceda Indication: Chest pain Rest ECG: NSR Procedure Note: Today following both written and verbal informed consent the patient was exercised according to a standard Alfredo protocol patient went for a total of 5 minutes 17 seconds achieving a maximum heart rate of 147 maximum systolic blood pressure of 152. This is approximately 7.0 METS. Exercise was terminated at this point because of targets met, and patient had mild angina. Patient remained in normal sinus rhythm throughout with occasional PVCs. CAROLA 20% on sedentary scale. Patient was also given Cardiolite through a previously started Hep-Lock IV by the nuclear physician approximately 1 minute prior to the cessation of exercise. Impression: Calderon treadmill score of 1 suggests intermediate probability for ischemia. Will await perfusion imaging. Please note: Actual ECG tracings can be found in the PACS system.
--- NOTE | 2019-04-28 14:38 | CM.DANOTE ---
Discharge Planning/Care Management DCP: assessment: case received, EMR reviewed. Discussed in Team Rounds. Pt is a 68 year old who lives with his Padma on [address]. PCP: Xander Farah Payer: Medicare and a commercial insurance supplement. Pt is admitted to care of hospitalist team and Dr. Logan noted that testing was in process and she would be conferring with cardiology and that, with pt's cardiac history she anticiptated a likely transfer to a higher level of cardiac care facility. Went to room to check in with pt, at that time he was off floor and in process of Treadmill with Dr. Grady Mccarthy. Was just informed now by Dr. Logan that pt is in process of urgent transfer to higher level of cardiac care. CM Discharge Assessment Start: 04/28/19 14:37 Freq: Status: Active Protocol: Document 04/28/19 14:37 ITV (Rec: 04/28/19 14:38 ITV [id number]) Discharge Planning Assessment Advance Directives? No Advance Directives on File No History Provided By Medical Record Prior Living Arrangements House Household Members spouse Review Status In Process Next Review Type Continued Stay Review
--- NOTE | 2019-04-28 14:46 | PM.DS.1 ---
History of Present Illness Date Patient Seen: 04/27/19 Chief complaint: sob/chest tightness today Narrative: Written by Danial KHOURY: Mr. 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 Patient describes having episodic shortness of breath occurring with activity. The 1st occurrence was while cranking the hitch on a trailer when he developed shortness of breath and mild substernal chest pressure and thinks he may have had some left arm pain as well. He rested and his symptoms resolved. The activity again reoccurred with mild activity each time relieved with rest. Most recently he describes walking up a slight hill and developing shortness of breath and having to return home. He denies complaints of nausea or diaphoresis or palpitations with each episode. The patient has been on chronic aspirin since his stroke and has been on and off Plavix related to varying provider guidance. The patient does report dizziness 1 week ago when he could not walk due to double vision that spontaneously resolved and was consistent with symptoms he experienced with his stroke. He reports only having mild episodes confusion or memory as residual with no weakness balance problems ataxia or falls. He denies any other recent illness with no fevers or chills, nasal congestion or sore throat. He is currently chest pain-free and denies shortness of breath at rest. He does endorse history of central sleep apnea for which she uses CPAP and denies cough or wheezing. The patient denies bdominal pain or diarrhea and has had constipation the past but no current problems. Will have intermittent left leg numbness which he attributes to how he sleeps. Upon arrival in the ER the patient was afebrile with a temperature 98.2?, heart rate 74, blood pressure 153/84, respirations 16 saturating 96% on room air. EKG obtained in the ER and reported as sinus rhythm without ectopy or signs of ischemia or infarct. Patient also underwent a CTA related to recent travel from [place] which was negative. The CT did find an aneurysmal dilation of the ascending thoracic aorta measures 4.3 cm. Chest x-ray was taken which finds no acute cardiopulmonary pathology. On laboratory analysis the patient has white count of 8.3 with a hemoglobin of 14.5 and hematocrit of 41.9 with platelets 205. His electrolytes are within normal range and has a BUN of 27 and creatinine 1.1. The patient's initial troponin was elevated at 0.035 and was recheck approximately 4 hours later and found to be 0.060. The patient has remained pain-free and denies shortness of breath. He is admitted to the hospital for chest pain and type 2 PA. Discharge Providers Date of admission: 04/28/19 10:58 Discharge Date: 04/28/19 Primary care physician: Xander Farah ND Consults: 04/27/19 22:14 Consult to Dietitian, Adult Routine Comment: Reason For Exam: Chest pain, hyperlipidemia 04/27/19 22:15 Consult to Discharge Planning Routine Comment: 04/27/19 22:33 Consult to Respiratory Therapy Evaluate & Treat Comment: Chest pain, CARLA CPAP Physician Instructions: Evaluate and treat Discharge provider: Rni Logan DO Summary Discharge Diagnosis: 1. Acute NSTEMI, present on admission. Active. 2. Hypertension, chronic, present on admission. Stable. 3. Hyperlipidemia, chronic, present on admission. Stable. 4. Central sleep apnea on CPAP, chronic, present on admission. Stable. 5. History of CVA in 2014. 6. Aneurysmal dilatation of thoracic aorta, chronic, present on admission. Stable. 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 1. Acute NSTEMI, present on admission. Active. -Patient with 3 days of exertional chest discomfort predominantly shortness of breath associated with mild chest pressure and an episode of left arm pain. Patient believes he had an PA in 2011 as he had classic symptoms and is a former EMT, however, he reports the workup never demonstrated such at [facility]. -Initial troponin 0.030. Serial troponins rising with last 0.072. -Echocardiogram demonstrated EF 50-55%, mid to distal posteriolateral wall hypokinesis and inferoapical hypokinesis unclear if changed from previous echocardiogram in 2016, RV is mildly dilated, mild mitral regurgitation and ascending aorta is moderately enlarged. -Started heparin gtt. -Continued aspirin 81 mg daily and increased atorvastatin from 40 mg to 80 mg daily at bedtime. Patient has been on and off Plavix at the guidance of various providers. -Ordered nitroglycerin 0.4 mg sublingual every 5 minutes x 3 for chest pain and morphine 2 mg every 4 hours as needed for pain. -Patient is NPO. Nuclear medicine stress test showed large perfusion defects possibly fixed, however, due to patient's chest pressure during stress test Dr. Orr of cardiology recommended transfer for heart catheterization. Patient is currently chest pain free. 2. Hypertension, chronic, present on admission. Stable. -Patient with elevated BP 153/84 in the ED. Patient reports typical blood pressure at home of 135 over 80s. -No longer treated with antihypertensive medications. 3. Hyperlipidemia, chronic, present on admission. Stable. -Fasting lipid panel demonstrated: Total cholesterol 168, triglycerides 111, LDL 108 (goal <70), HDL 38. -Initially continued atorvastatin 40 mg daily at bedtime and increased to 80 mg daily at bedtime. 4. Central sleep apnea on CPAP, chronic, present on admission. Stable. -Patient uses CPAP at home and consulted respiratory therapy per CPAP protocol. 5. History of CVA in 2014. -Patient reports prior right hemiparesis that resolved with rehabilitation. He continues to have recurrent manifestations that he has related to his previous CVA including left facial numbness and diplopia but may be cardiac in origin. -Continued aspirin 81 mg daily and increased atorvastatin from 40 mg to 80 mg daily at bedtime. 6. Aneurysmal dilatation of thoracic aorta, chronic, present on admission. Stable. -Mild to moderate dilation of aorta noted echocardiogram in 2016. -CTA demonstrated aneurysm make dilation of the ascending thoracic aorta of up to 4.3 cm, aortic arch measures up to approximately 3.1 cm at the vertex, proximal descending thoracic aorta measures up to 3.1 cm, at the level of the diaphragm measures up to 2.7 cm. -Recommend continued outpatient surveillance. Exam Vital Signs (past 8 hours): - 04/28/19 07:25 04/28/19 11:00 Temperature 97.9 F 97.4 F L Pulse Rate 52 L 45 L Respiratory Rate 18 18 Blood Pressure 129/71 132/73 Pulse Oximetry 96 97 Oxygen Delivery Method CPAP Oxygen Flow Rate 0 Narrative Exam Narrative: General: Older gentleman lying in bed and in no acute distress, well-developed, well-nourished, appropriately interactive. HEENT: Normocephalic, atraumatic. External ears without defect. Pupils equal, round, and reactive to light. Anicteric sclerae, moist conjunctivae, and no lid lag. Oropharynx free of erythema and cobble stoning with moist mucosa. Neck: Supple with full range of motion. No jugular venous distension. No bruits. No lymphadenopathy or thyromegaly. Cardiovascular: Regular rate and rhythm without murmurs, rubs, or gallops appreciated. Pulmonary: Clear to auscultation bilaterally without crackles, wheezes, or rhonchi. Normal respiratory effort with no use of accessory muscles. Abdomen: Soft, bowel sounds present, non-tender, non-distended. No hepatosplenomegaly or masses appreciated. Extremities: No clubbing, cyanosis, or edema. Skin: Normal temperature, turgor, and texture; no rash, ulcers, or subcutaneous nodules appreciated. Neurological: Cranial nerves grossly intact. Psychiatric: Normal mood and affect. Alert and oriented to person, place, and time. Objective Labs Result Diagrams: 04/28/19 16:05 04/28/19 05:48 Labs: Laboratory Results - last 24 hr 04/27/19 04/27/19 04/27/19 18:50 18:50 18:50 WBC 8.3 RBC 4.81 Hgb 14.5 Hct 41.9 MCV 87.1 MCH 30.1 MCHC 34.5 RDW 14.6 Plt Count 205 Neut % (Auto) 60.3 Lymph % (Auto) 25.0 Bacon % (Auto) 9.5 Eos % (Auto) 4.8 H Baso % (Auto) 0.4 Neut # (Auto) 5000 Lymph # (Auto) 2100 Bacon # (Auto) 800 Eos # (Auto) 400 Baso # (Auto) 0 PT 11.7 INR 1.0 APTT 35 Sodium 137 Potassium 4.1 Chloride 101 Carbon Dioxide 28 BUN 27 H Creatinine 1.10 Estimated GFR > 60.0 BUN/Creatinine Ratio 24.5 H Glucose 89 Calcium 9.9 Total Bilirubin 0.5 AST 28 ALT 20 L Alkaline Phosphatase 51 Total Creatine Kinase 112 CK-MB (CK-2) 2.11 CK-MB (CK-2) Rel Index 1.9 Troponin I 0.035 H Total Protein 7.8 Albumin 4.4 Globulin 3.4 Albumin/Globulin Ratio 1.3 Triglycerides Cholesterol LDL Cholesterol, Calc HDL Cholesterol Lipase 106 04/27/19 04/27/19 04/28/19 20:57 23:59 05:48 WBC RBC Hgb Hct MCV MCH MCHC RDW Plt Count Neut % (Auto) Lymph % (Auto) Bacon % (Auto) Eos % (Auto) Baso % (Auto) Neut # (Auto) Lymph # (Auto) Bacon # (Auto) Eos # (Auto) Baso # (Auto) PT INR APTT Sodium Potassium Chloride Carbon Dioxide BUN Creatinine Estimated GFR BUN/Creatinine Ratio Glucose Calcium Total Bilirubin AST ALT Alkaline Phosphatase Total Creatine Kinase CK-MB (CK-2) CK-MB (CK-2) Rel Index Troponin I 0.060 H 0.059 H 0.072 H Total Protein Albumin Globulin Albumin/Globulin Ratio Triglycerides Cholesterol LDL Cholesterol, Calc HDL Cholesterol Lipase 04/28/19 04/28/19 05:48 05:48 WBC 5.9 RBC 4.60 Hgb 13.8 Hct 40.1 L MCV 87.3 MCH 30.0 MCHC 34.4 RDW 14.6 Plt Count 178 Neut % (Auto) 53.9 Lymph % (Auto) 29.1 Bacon % (Auto) 10.6 Eos % (Auto) 6.1 H Baso % (Auto) 0.3 Neut # (Auto) 3200 Lymph # (Auto) 1700 Bacon # (Auto) 600 Eos # (Auto) 400 Baso # (Auto) 0 PT INR APTT Sodium 137 Potassium 3.9 Chloride 103 Carbon Dioxide 29 BUN 22 H Creatinine 1.00 Estimated GFR > 60.0 BUN/Creatinine Ratio 22.0 Glucose 88 Calcium 9.4 Total Bilirubin AST ALT Alkaline Phosphatase Total Creatine Kinase CK-MB (CK-2) CK-MB (CK-2) Rel Index Troponin I Total Protein Albumin Globulin Albumin/Globulin Ratio Triglycerides 111 Cholesterol 168 LDL Cholesterol, Calc 108 H HDL Cholesterol 38 L Lipase Discharge Plan Discharge Plan Patient Disposition: [facility] Transfer to: [facility] Under care of provider: Dr. Orr, cardiology and Dr. Bernardo, hospitalist Discharge Med Rec/Prescriptions Prescriptions: Continued aspirin 81 MG tablet,delayed release (DR/EC) 81 mg PO QDAY Qty: 30 RF: 0 Changed atorvastatin [Lipitor] 20 MG tablet 80 mg PO HS Qty: 30 RF: 0 Discontinued clopidogrel [Plavix] 75 MG tablet 75 mg PO QDAY Qty: 30 RF: 0 Follow up/Referrals: Xander Farah ARNP [Primary Care Provider] - Discharge Data Primary Care Provider: Xander Farah Attending Provider: Danial Ying Admit Date/Time: 04/28/19 10:58 Discharges patient from system. Discharge Date/Time: 04/28/19 17:15 Quality VTE Deep Vein Thrombosis/Pulmonary Embolism Present on Admission: No
[2019-04-28 15:09] VITALS: BMI 29.2
[2019-04-28 15:23] VITALS: BP 131/80; PULSE 54; RESP 18; TEMP 36.7; O2SAT 98
[2019-04-28 16:12] LABS: Add Manual Diff / Slide Review NO; Basophils Absolute Auto 0 /uL (0-100); Basophils Percent Auto 0.4 % (0-2); Eosinophils Absolute Auto 300 /uL (0-450); Eosinophils Percent Auto 3.2 % (2-4); Hematocrit 44.7 % (41-53); Hemoglobin 15.4 g/dL (13.5-17.5); Lymphocytes Absolute Auto 1700 /uL (1100-4500); Lymphocytes Percent Auto 20.5 % (25-40); Mean Corpuscular HGB Conc 34.5 % (30-36); Mean Corpuscular Hemoglobin 30.2 PG (26-34); Mean Corpuscular Volume 87.5 fL (80-100); Monocytes Absolute Auto 600 /uL (0-900); Monocytes Percent Auto 7.5 % (3-14); Neutrophils Absolute Auto 5800 /uL (1500-7000); Neutrophils Percent Auto 68.4 % (50-75); Platelet Count 205 X10^3/uL (150-400); Red Cell Distribution Width 14.4 % (11.6-14.8); White Blood Cell Count 8.4 X10^3/uL (4.5-11.0)
[2019-04-28 16:21] LABS: INR 1.1 (0.9-1.3); Prothrombin Time 12.6 SECONDS (10.1-12.7)
[2019-04-28 16:23] LABS: PTT Partial Thromboplastin Tim 44 SECONDS (26.4-36.2)
[2019-04-28] MEDS: HEPARIN 5,000 UNIT/ML VIAL 5000 UNIT IV (16:37)
[2019-04-28] MEDS: HEPARIN DRIP 25,000 UNIT/500 ML IV.SOLN 25.44 UNIT IV (16:39)
--- NOTE | 2019-04-28 17:30 | PC.NURSE ---
Transfer Note Pt A&O, VSS, Tele AVB/BBB. No complaints of chest pain or shortness of breath. Report given to RN Keisha at [facility], and ambulance RN. All question/concerns addressed. Pt belongings taken by earlier. Transfer packet given to ambulance RN. Pt left floor via stretcher w/ heparin gtt infusion per JAN.
== END 2019-04-28 17:15 | disposition short-term general hospital (02) | DRG 282 ==
LOC: ED 21:46 → AC 22:08
PROVIDERS: Internal Medicine; Admitting Provider Nurse Practitioner Adult Health; Emergency Provider Emergency Medicine; PCP Registered Nurse; Visit Provider Nurse Practitioner Adult Health
DX: I21.4 Non-ST elevation (NSTEMI) myocardial infarction (principal); I69.311 Memory deficit following cerebral infarction; I10 Essential (primary) hypertension; G47.31 Primary central sleep apnea; I25.10 Atherosclerotic heart disease of native coronary artery without angina pectoris; E78.5 Hyperlipidemia, unspecified; I71.2 Thoracic aortic aneurysm, without rupture
CPT/HCPCS: 36415; 71045; 71275; 78451; 80048; 80053; 80061; 82550; 82553; 83690; 84484; 85025; 85610; 85730; 93005; 93016; 93017; 93018; 93041; 93306; 94660; 94762; 99285; G0378; A9502; J1644; J1650; Q9967